=== PATIENT | female | born 1925 | race Caucasian/White ===

== ENCOUNTER 2016-06-01 11:52 | Inpatient (IN) | payer OTHER ==
[~2016-06-01] VITALS: Ht 154.9 cm; Wt 54.0 kg
--- NOTE | ~2016-06-01 | HC ---
[facility] [place] [address] CONSULTATION Name: ISABEL HUI Room #: 453-P [facility] IN M.R.#: [id number] Admission: 06/01/16 Attend Phys: Yohana Prater Discharge: 06/03/16 Date of : [birth year] Report #: [id number] THIS REPORT FOR: //name// CC: Jimmy Prater HISTORY OF PRESENT ILLNESS: The patient is an 89-year-old white female admitted with increased confusion, left-sided weakness. Left arm weakness and significantly gait decrease with decline functional mobility. MRI revealed an acute right posterior parietal stroke, which is new. 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 Neurology is seen her and she is on aspirin and Plavix. We are seeing her in rehabilitation medicine consultation with her significant functional decline from premorbid status. PATIENT'S PAST MEDICAL HISTORY: Includes a prior hemorrhagic stroke. She has a history of atrial fibrillation, but has been off Coumadin with the prior hemorrhagic stroke. There also is a note of some dementia, undiagnosed. PAST SURGICAL HISTORY: Includes a cholecystectomy in 1979. HABITS: Former smoker, quit greater than a year ago. She has a history of ETOH, use only on special occasions. ALLERGIES: CODEINE RESULTS IN SOME VOMITING. SOCIAL HISTORY: Lives with her son, ranch style house few steps in. Premorbid walker ambulator. She was able to use the walker, use the bathroom on her own premorbidly up until the time of this new stroke. REVIEW OF SYSTEMS: Did not offer any current complaints of chest pain, shortness of breath or abdominal discomfort examination. No focal extremity pain complaints. No HEENT complaints. PHYSICAL EXAMINATION: GENERAL: An 89-year-old small statured, thin, white female in no obvious distress. VITAL SIGNS: Last recorded temperature 97.8, pulse 63, respirations 16, blood pressure 110/51. NEUROLOGIC: She is alert, pleasant, somewhat impulsive, does have some slurring of her speech. Appears to have a depressed right nasolabial fold. Facies otherwise appeared reasonably symmetric. Functional range of motion of the right upper and right lower extremity without obvious focal weakness. Left upper extremity strength is probably a grade 3+ to 4-/5. Left lower extremity is probably a grade 3+ to 4-/5. DTRs are trace. She is needing assistance with basic functional mobility skills. ASSESSMENT: An 89-year-old white female with the following problem list: [address] [address] CONSULTATION Name: KORINAISABEL KENRICK Room #: 453-P [facility] IN .R.#: [id number] Admission: 06/01/16 Attend Phys: Yohana Prater Discharge: 06/03/16 Date of : [birth year] Report #: [id number] 1. Acute right posterior parietal stroke. 2. Left-sided weakness with decreased functional mobility, gait and ADLs. 3. Dysarthria. 4. History of atrial fibrillation, off Coumadin secondary to prior hemorrhagic stroke. 5. History of dementia, undiagnosed. Nevertheless, living in the community with her son. PLAN: Therapy evaluations are underway. We will see how she does in rehabilitation therapies and consider a short acute inpatient rehabilitation stay pending her progress. We will be glad to follow along with you. <ELECTRONICALLY SIGNED> By: Jimmy Piper MD 06/15/16 1518 1158 1350 Jimmy Piper MD /nt
--- NOTE | ~2016-06-01 | 2DMMODE ---
[facility] [place] [address] 2 D/M-MODE ECHOCARDIOGRAM Name: KORINAISABEL CHOUDHARY Room #: 453-P ADM IN M.R.#: [id number] Admission: 06/01/16 Attend Phys: Yohana Cary Discharge: Date of : [birth year] Date of Service: 06/02/16 0006 Report #: [id number] THIS REPORT FOR: //name// APPROVED REPORT Study performed: 06/01/2016 15:07:38 EXAM: Comprehensive 2D, Doppler, and color-flow Echocardiogram Patient Location: ER Room #: 2 Blood Pressure: 96/54 mmHg HR: 75 bpm Rhythm: Atrial Fibrillation Other Information Study Quality: Adequate Indications CVA/TIA Atrial Fibrillation 2D Dimensions RVDd: 24.48 mm LVEF(%): 61.44 (>50%) IVSd: 9.81 (7-11mm) LVOT Diam: 18.35 (18-24mm) LVDd: 33.53 mm PWd: 10.32 (7-11mm) Ascending Aorta: 27.86 mm LVDs: 22.78 (25-40mm) IVC: 20.00 mm Aortic Root: 23.75 mm Todd's LVEF: 61.44 % Volumes Left Atrial Volume (Systole) Single Plane 4CH: 63.98 mL Single Plane 2CH: 75.45 mL LA ESV Index: 49.00 mL/m2 Aortic Valve AoV Peak Ad.: 3.73 m/s AO Peak Gr.: 55.76 mmHg LV Max P.53 mmHg AO Mean Gr.: 33.74 mmHg LV Mean P.50 mmHg LV Max: 0.79 m/s AO V2 VTI: 852.75 mm LV Mean: 0.57 m/s TERELL (VTI): 0.53 cm2 LV V1 VTI: 171.76 mm SV (LVOT): 45.40 mL [facility] [place] [address] 2 D/M-MODE ECHOCARDIOGRAM Name: ISABEL HUI Room #: 453-P [facility] IN M.R.#: [id number] Admission: 06/01/16 Attend Phys: Yohana Cary Discharge: Date of : [birth year] Date of Service: 06/02/16 0006 Report #: [id number] Mitral Valve MV Peak Gr.: 14.69 mmHg MV Mean Gr.: 4.68 mmHg MV Decel. Time: 222.25 ms MV E Max Ad.: 1.56 m/s MV Max Ad.: 1.91 m/s MV Mean Ad.: 0.93 m/s MV VTI: 446.60 mm MVA VTI: 101.66 mm2 MV PHT: 80.16 ms Pulmonary Valve PV Peak Ad.: 0.93 m/s PV Peak Gr.: 3.44 mmHg Tricuspid Valve TR Peak Ad.: 2.79 m/s RAP Estimate: 10.00 mmHg TR Peak Gr.: 31.18 mmHg Left Ventricle The left ventricle is normal size. There is normal left ventricular wall thickness. Left ventricular systolic function is hyperdynamic. LVEF is 65-70%. Diastolic function cannot be accurately assessed. Right Ventricle The right ventricle is normal size. The right ventricular systolic function is normal. Atria Left atrium is dilated. Right atrium is dilated. Aortic Valve Aortic valve is calcified. Trace aortic regurgitation. Moderate to severe aortic stenosis. Mitral Valve Mitral valve leaflets have restricted excursion. Severe mitral annular calcification. Mild mitral regurgitation. Mild to moderate mitral stenosis. Tricuspid Valve The tricuspid valve is normal in structure. There is mild to moderate tricuspid regurgitation. The right atrial pressure is estimated at 10 mmHg. There is mild pulmonary hypertension. The estimated PAP was [address] [place] [address] 2 D/M-MODE ECHOCARDIOGRAM Name: ISABEL HUI Room #: 453-P [facility] IN [facility]#: [id number] Admission: 06/01/16 Attend Phys: Yohana Cary Discharge: Date of : [birth year] Date of Service: 06/02/16 0006 Report #: [id number] Pulmonic Valve The pulmonary valve is normal in structure. There is no pulmonic valvular regurgitation. Great Vessels The aortic root is normal in size. IVC is dilated and collapses >50% with inspiration. Pericardium There is no pericardial effusion. <Conclusion> The left ventricle is normal size. LVEF is 65-70%. Left atrium is dilated. Right atrium is dilated. Aortic valve is calcified although not well visualized Trace aortic regurgitation. Moderate to severe aortic stenosis. Mitral valve leaflets have restricted excursion. Severe mitral annular calcification. Mild mitral regurgitation. Mild to moderate mitral stenosis. The tricuspid valve is normal in structure. There is mild to moderate tricuspid regurgitation. The right atrial pressure is estimated at 10 mmHg. There is mild pulmonary hypertension. The estimated PAP was 41 mmHg. <ELECTRONICALLY SIGNED> By: Marcello Platt MD 06/02/165 Marcello Platt MD /INF
--- NOTE | ~2016-06-01 | EKG ---
[address] [place] [address] ELECTROCARDIOGRAM REPORT Name: ISABEL HUI KENRICK Room #: 453-P ADM IN M.R.#: [id number] Admission: 06/01/16 Attend Phys: Yohana Prater Discharge: Date of : [birth year] Report #: [id number] THIS REPORT FOR: //name// [facility] ED Test Date: 2016-06-01 Test Time: 13:04:18 Pat Name: ISABEL HUI Department: Room: [facility] Gender: F Help Desk Manager: jyotsna severino : 1925 Requested By: Alexis Hassan Order Number: [id number] MD: Edson Sears Measurements Intervals [place] Rate: 67 P: ME: QRS: 61 QRSD: 93 T: 164 QT: 420 QTc: 444 Interpretive Statements Atrial fibrillation LVH with secondary repolarization abnormality Anterior Q waves, possibly due to LVH Compared to ECG 12/28/2010 16:31:22 nonspecific change in the ST-T wave segments Electronically Signed On 06-02-2016 9:18:54 CDT by Edson Sears [email or web address] <ELECTRONICALLY SIGNED> By: Edson Sears MD, [facility] 06/02/16 0918 1304 1304 Edson Sears MD, [facility] /EPI
[~2016-06-01 11:52] MED LIST: ASPIRIN81 M2 PO; JANTOVEN6 MG PO; LIDODERM 5%1 PATCH TOP; MOBIC7.5 MG PO; MULTIVITAMINS1 EAC7 PO; RESTORIL30 MG PO; TRAMADOL 50 MG50 MG PO
[2016-06-01 12:03] VITALS: BP 92/53
[2016-06-01 12:36] LABS: ANION GAP 6 mmol/L (7-16); BUN 10 mg/dL (7-18); CALCIUM 9.1 mg/dL (8.5-10.1); CHLORIDE 104 mmol/L (98-107); CO2 28 mmol/L (21-32); CREATININE 0.6 mg/dL (0.6-1.0); GLUCOSE 115 mg/dL (74-106); POTASSIUM 5.1 mmol/L (3.5-5.1)
[2016-06-01 12:39] LABS: SODIUM 138 mmol/L (136-145)
[2016-06-01 12:46] LABS: TROPONIN-I < 0.04 ng/mL (<0.04-0.07)
[2016-06-01 12:47] LABS: INR 1.3; PROTIME 13.1 Seconds (9.3-11.4)
[2016-06-01 13:08] LABS: BASOPHILS 0.2 % (0.0-2.0); EOSINOPHILS 1.3 % (0.0-3.0); HEMATOCRIT 39.9 % (37.0-47.0); HEMOGLOBIN 13.3 gm/dL (12.0-15.0); LYMPHOCYTES 10.9 % (24.0-44.0); MCH 30.8 pg (26.0-34.0); MCHC 33.3 g/dL (28.0-37.0); MCV 92.6 fL (80.0-100.0); MONOCYTES 8.8 % (1.0-8.0); PLATELET COUNT 153 thou/uL (150-400); POLYS 78.8 % (36.0-66.0); RBC 4.32 mil/uL (4.20-5.00); RDW 14.4 % (10.5-14.5); WBC 6.3 thou/uL (4.0-11.0)
[2016-06-01 13:10] LABS: MANUAL DIFF NO
[2016-06-01 14:07] LABS: TC:HDL 2.6 Ratio (Not establshd)
[2016-06-01 14:11] LABS: URINE BILIRUBIN NEGATIVE (Negative); URINE BLOOD NEGATIVE (Negative); URINE COLOR YELLOW; URINE GLUCOSE-RANDOM* NEGATIVE (Negative); URINE KETONES NEGATIVE (Negative); URINE NITRITE NEGATIVE (Negative); URINE PROTEIN (DIPSTICK) NEGATIVE (Negative)
[2016-06-01 16:40] VITALS: BP 136/70
[2016-06-01 19:46] VITALS: BP 103/84
[2016-06-02 00:15] VITALS: BP 120/52
[2016-06-02 05:29] VITALS: BP 124/60
[2016-06-02 07:46] VITALS: BP 110/51
[2016-06-02 11:53] LABS: FOLIC ACID 15.3 ng/mL (8.6-58.9)
[2016-06-02 12:31] VITALS: BP 134/58
[2016-06-02 16:06] VITALS: BP 125/57
[2016-06-02 19:26] VITALS: BP 137/83
[2016-06-03 03:10] LABS: GLYCOHEMOGLOBIN (HGB A1C) 5.8 % (4.8-5.6)
[2016-06-03 03:35] VITALS: BP 139/77
[2016-06-03 08:25] VITALS: BP 139/89
[2016-06-03 12:45] VITALS: BP 105/54
[2016-06-03] MEDS ORDERED: LOPRESSOR25 PO (16:33)
[2016-06-03] MEDS ORDERED: ACETAMINOPHEN325 M1 PO (16:33)
[2016-06-03] MEDS ORDERED: CLOPIDOGREL75 MG PO (16:33)
[2016-06-03] MEDS ORDERED: ATORVASTATIN CA20 MG PO (16:33)
[2016-06-03] MEDS ORDERED: MIRALAX17 GM PO (16:33)
[2016-06-03 16:36] VITALS: BP 124/68
== END 2016-06-03 17:30 | DRG 66 ==
LOC: ER 11:52 → EROBS 13:45 → 4W 13:45
PROVIDERS: Emergency Medicine; Hospitalist; Psychiatry & Neurology Neurology
DX: I63.9 Cerebral infarction, unspecified (principal); I48.91 Unspecified atrial fibrillation; R26.9 Unspecified abnormalities of gait and mobility; R47.1 Dysarthria and anarthria; F03.90 Unspecified dementia, unspecified severity, without behavioral disturbance, psychotic disturbance, mood disturbance, and anxiety; E78.5 Hyperlipidemia, unspecified; I10 Essential (primary) hypertension; Z88.6 Allergy status to analgesic agent; Z90.49 Acquired absence of other specified parts of digestive tract; Z87.891 Personal history of nicotine dependence
CPT/HCPCS: 10045

== ENCOUNTER 2017-02-09 12:39 | Inpatient (IN) | payer OTHER ==
[~2017-02-09] VITALS: Ht 152.4 cm; Wt 56.7 kg
--- NOTE | ~2017-02-09 | EKG ---
[address] [address] ELECTROCARDIOGRAM REPORT Name: LOIDAISABEL MITCHELL KENRICK Room #: 443- ADM IN M.R.#: [id number] Admission: 02/09/17 Attend Phys: Mark Pappas MD Discharge: Date of : [birth year] Report #: [id number] THIS REPORT FOR: //name// [facility] Test Date: 2017-02-10 Test Time: 12:13:42 Pat Name: ISABEL HUI Department: Room: 443 Gender: F Valve Mechanic: Dmitri GUERRA : 1925 Requested By: Mark Pappas Order Number: [id number] MD: Melvin Conley Measurements Intervals [place] Rate: 80 P: [place]: QRS: 78 QRSD: 97 T: 3 QT: 378 QTc: 436 Interpretive Statements Atrial fibrillation Ventricular premature complex LVH with secondary repolarization abnormality Compared to ECG 06/01/2016 13:04:18 Ventricular premature complex(es) now present Q waves no longer present Electronically Signed On 02-11-2017 8:23:08 CONCRETE POURER by Melvin Conley [email or web address] <ELECTRONICALLY SIGNED> By: Melvin Conley MD 02/11/17 0823 1213 1213 Melvin Conley MD /EPI
--- NOTE | ~2017-02-09 | 2DMMODE ---
[facility] [address] [place] [address] 2 D/M-MODE ECHOCARDIOGRAM Name: KORINAISABEL CHOUDHARY Room #: 443-P ADM IN M.R.#: [id number] Admission: 02/09/17 Attend Phys: Mark Pappas, Discharge: Date of : [birth year] Date of Service: 02/10/17 1100 Report #: [id number] THIS REPORT FOR: //name// APPROVED REPORT Study performed: 02/10/2017 07:11:37 EXAM: Comprehensive 2D, Doppler, and color-flow Echocardiogram Patient Location: Bedside Room #: 443 Status: routine BSA: 1.56 HR: 90 bpm BP: 133/77 mmHg Rhythm: Atrial Fibrillation Other Information Study Quality: Adequate Indications Short of breath. Hx: Afib, HTN, aortic stenosis 2D Dimensions RVDd: 27.23 mm LVEF(%): 65.42 (>50%) IVSd: 11.75 (7-11mm) LVOT Diam: 19.43 (18-24mm) LVDd: 37.89 mm PWd: 11.01 (7-11mm) Ascending Ao: 30.07 (22-36mm) LVDs: 24.52 (25-40mm) Aortic Root: 26.88 mm Todd's LVEF: 65.42 % Volumes Left Atrial Volume (Systole) Single Plane 4CH: 64.49 mL Single Plane 2CH: 69.26 mL LA ESV Index: 45.00 mL/m2 Aortic Valve AoV Peak Ad.: 4.70 m/s AO Peak Gr.: 88.21 mmHg LVOT Max P.35 mmHg AO Mean Gr.: 49.96 mmHg AO V2 Mean: 3.41 m/s LVOT Max V: 0.92 m/s AO V2 VTI: 92.17 cm TERELL Vmax: 0.58 cm2 Mitral Valve [facility] [place] [address] 2 D/M-MODE ECHOCARDIOGRAM Name: KORINAISABEL KENRICK Room #: 443-P [facility] IN .R.#: [id number] Admission: 02/09/17 Attend Phys: Mark Pappas, Discharge: Date of : [birth year] Date of Service: 02/10/17 1100 Report #: [id number] MV Decel. Time: 269.35 ms MV PHT: 79.12 ms MVA (PHT): 2.78 cm2 Pulmonary Valve PV Peak Da.: 0.88 m/s PV Peak Gr.: 3.09 mmHg Tricuspid Valve TR Peak Ad.: 2.83 m/s RAP Estimate: 10.00 mmHg TR Peak Gr.: 32.14 mmHg PA Pressure: 42.00 mmHg Left Ventricle The left ventricle is normal size. There is normal LV segmental wall motion. Mild concentric left ventricular hypertrophy. Left ventricular systolic function is hyperdynamic. LVEF is 65-70%. This study is not technically sufficient to allow evaluation of the LV diastolic function due to atrial fibrillation. Right Ventricle The right ventricle is normal size. The right ventricular systolic function is normal. Atria Left atrium is severely dilated. Right atrium is moderately dilated. Aortic Valve Aortic valve is heavily calcified. Trace aortic regurgitation. There is severe valvular aortic stenosis. Calculated aortic valve area is 0.6 cm2 with an average maximum pressure gradient of 77 mmHg and average mean pressure gradient of 46 mmHg. Mitral Valve Mitral valve leaflets have restricted excursion. Severe mitral annular calcification. Mild mitral regurgitation. Mild to moderate mitral stenosis. Average mean pressure gradient of 6mmHg. Tricuspid Valve The tricuspid valve is normal in structure. Mild to moderate tricuspid regurgitation. Estimated PAP is 40-45mmHg. Pulmonic Valve Pulmonic valve is not well visualized. [place] [address] 2 D/M-MODE ECHOCARDIOGRAM Name: ISABEL HUI Room #: 443-P [facility] IN ..#: [id number] Admission: 02/09/17 Attend Phys: Mark Pappas, Discharge: Date of : [birth year]/16/[birth year] Date of Service: 02/10/17 1100 Report #: [id number] Great Vessels The aortic root is normal in size. The ascending aorta is normal in size. IVC is normal in size and collapses <50% with inspiration. Pericardium Small anterior pericardial effusion noted. Right pleural effusion noted. <Conclusion> The left ventricle is normal size. Mild concentric left ventricular hypertrophy. LVEF is 65-70%. Left atrium is severely dilated. Right atrium is moderately dilated. Aortic valve is heavily calcified. Trace aortic regurgitation. There is severe valvular aortic stenosis. Calculated aortic valve area is 0.6 cm2 with an average maximum pressure gradient of 77 mmHg and average mean pressure gradient of 46 mmHg. Mitral valve leaflets have restricted excursion. Severe mitral annular calcification. Mild to moderate tricuspid regurgitation. Estimated PAP is 40-45mmHg. Small anterior pericardial effusion noted. <ELECTRONICALLY SIGNED> By: Mickey Galvan MD, FACC 02/10/17 1100 1100 1100 Mickey Galvan MD, FACC /INF
[~2017-02-09 12:39] MED LIST changes: +ACETAMINOPHEN325 M1 PO; +ATORVASTATIN CA20 MG PO; +CLOPIDOGREL75 MG PO; +LOPRESSOR25 PO; +MIRALAX17 GM PO
[2017-02-09 12:40] VITALS: BP 142/64
[2017-02-09 12:58] LABS: ABSOLUTE NEUTROPHILS 4.6 thou/uL (1.4-8.2); BASOPHILS 0.8 % (0.0-2.0); EOSINOPHILS 2.4 % (0.0-3.0); HEMOGLOBIN 12.2 gm/dL (12.0-15.0); LYMPHOCYTES 16.8 % (24.0-44.0); MCH 29.6 pg (26.0-34.0); MCV 89.8 fL (80.0-100.0); MONOCYTES 9.2 % (1.0-8.0); PLATELET COUNT 121 thou/uL (150-400); POLYS 70.8 % (36.0-66.0); RBC 4.12 mil/uL (4.20-5.00); RDW 15.2 % (10.5-14.5); WBC 6.5 thou/uL (4.0-11.0)
[2017-02-09 13:06] LABS: CREATININE 0.8 mg/dL (0.6-1.0); POTASSIUM 3.9 mmol/L (3.5-5.1)
[2017-02-09 13:21] LABS: BE(vivo) 4.1 mmol/L (-2 to +3); PCO2 50.7 mmHg (35.0-45.0); PO2 63.3 mmHg (80.0-100.0); sO2 91.7 % (92.0-98.0)
[2017-02-09] MEDS ORDERED: ASPIRIN325 PO (13:27)
[2017-02-09] MEDS ORDERED: CARVEDILOL3.125 MG PO (13:30)
[2017-02-09] MEDS ORDERED: LASIX 40 MG TAB40 M2 PO (13:31)
[2017-02-09] MEDS ORDERED: SEROQUEL 25 MG25 M1 PO (13:31)
[2017-02-09] MEDS ORDERED: POTASSIUM20 PO (13:32)
[2017-02-09 13:46] VITALS: BP 120/70
[2017-02-09 14:08] VITALS: BP 120/70
[2017-02-09 14:30] VITALS: BP 137/86
[2017-02-09] MEDS ORDERED: DUONEB 2.5-0.5 M3 ML INH (16:15)
[2017-02-09] MEDS ORDERED: XANAX 0.25 MG0.25 MG PO (16:17)
[2017-02-10 00:35] VITALS: BP 133/77
[2017-02-10 06:21] LABS: HEMATOCRIT 36.6 % (37.0-47.0); HEMOGLOBIN 11.9 gm/dL (12.0-15.0); MCH 29.6 pg (26.0-34.0); MCHC 32.4 g/dL (28.0-37.0); MCV 91.2 fL (80.0-100.0); RBC 4.01 mil/uL (4.20-5.00); RDW 15.3 % (10.5-14.5); WBC 5.2 thou/uL (4.0-11.0)
[2017-02-10 06:31] LABS: CALCIUM 8.7 mg/dL (8.5-10.1); CREATININE 0.7 mg/dL (0.6-1.0); MAGNESIUM 1.9 mg/dL (1.8-2.4); POTASSIUM 3.4 mmol/L (3.5-5.1)
[2017-02-10 07:49] VITALS: BP 114/64
[2017-02-10 16:06] VITALS: BP 113/70
[2017-02-10 20:00] VITALS: BP 109/66
[2017-02-11 04:30] VITALS: BP 116/56
[2017-02-11 07:35] VITALS: BP 121/75
[2017-02-11 08:39] LABS: HEMATOCRIT 37.7 % (37.0-47.0); HEMOGLOBIN 12.6 gm/dL (12.0-15.0); MCHC 33.3 g/dL (28.0-37.0); RBC 4.19 mil/uL (4.20-5.00); RDW 15.7 % (10.5-14.5); WBC 5.8 thou/uL (4.0-11.0)
[2017-02-11 08:45] LABS: CALCIUM 9.3 mg/dL (8.5-10.1); CREATININE 0.9 mg/dL (0.6-1.0); MAGNESIUM 1.8 mg/dL (1.8-2.4); POTASSIUM 3.6 mmol/L (3.5-5.1)
[2017-02-11 16:35] VITALS: BP 114/74
[2017-02-11 19:59] VITALS: BP 118/57
[2017-02-11 23:17] VITALS: BP 106/50
[2017-02-12 03:16] VITALS: BP 130/74
[2017-02-12 09:25] VITALS: BP 134/82
[2017-02-12 16:22] VITALS: BP 127/79
[2017-02-12 20:54] VITALS: BP 122/64
[2017-02-13 03:50] VITALS: BP 125/63
[2017-02-13 08:00] VITALS: BP 111/66
[2017-02-13 12:31] LABS: HEMATOCRIT 38.4 % (37.0-47.0); HEMOGLOBIN 12.9 gm/dL (12.0-15.0); MCHC 33.6 g/dL (28.0-37.0); MCV 89.1 fL (80.0-100.0); RBC 4.31 mil/uL (4.20-5.00); RDW 14.9 % (10.5-14.5); WBC 7.4 thou/uL (4.0-11.0)
[2017-02-13 12:43] LABS: CALCIUM 9.7 mg/dL (8.5-10.1); CREATININE 0.7 mg/dL (0.6-1.0); MAGNESIUM 2.1 mg/dL (1.8-2.4)
[2017-02-13 16:00] VITALS: BP 121/81
[2017-02-13 19:47] VITALS: BP 119/80
[2017-02-14 00:35] VITALS: BP 111/69
[2017-02-14 04:37] VITALS: BP 139/85
[2017-02-14 09:00] VITALS: BP 113/58
[2017-02-14 16:20] VITALS: BP 124/77
[2017-02-14 20:30] VITALS: BP 123/69
[2017-02-15 03:48] VITALS: BP 119/55
[2017-02-15 05:32] LABS: ABSOLUTE NEUTROPHILS 5.9 thou/uL (1.4-8.2); BASOPHILS 0.3 % (0.0-2.0); HEMATOCRIT 39.3 % (37.0-47.0); HEMOGLOBIN 13.1 gm/dL (12.0-15.0); LYMPHOCYTES 19.9 % (24.0-44.0); MCH 29.8 pg (26.0-34.0); MCHC 33.3 g/dL (28.0-37.0); MCV 89.6 fL (80.0-100.0); MONOCYTES 6.8 % (1.0-8.0); PLATELET COUNT 179 thou/uL (150-400); RBC 4.38 mil/uL (4.20-5.00); RDW 15.1 % (10.5-14.5); WBC 8.6 thou/uL (4.0-11.0)
[2017-02-15 05:52] LABS: ALBUMIN 2.9 g/dL (3.4-5.0); CREATININE 0.8 mg/dL (0.6-1.0); POTASSIUM 3.6 mmol/L (3.5-5.1); TOTAL BILIRUBIN 0.6 mg/dL (<0.1-1.0); TOTAL PROTEIN 7.1 g/dL (6.4-8.2)
[2017-02-15 07:40] VITALS: BP 108/73
[2017-02-15 15:02] VITALS: BP 126/71
[2017-02-15 20:40] VITALS: BP 133/70
[2017-02-16 04:46] VITALS: BP 109/71
[2017-02-16 07:30] VITALS: BP 131/82
[2017-02-16] MEDS ORDERED: LEVAQUIN 500 M500 M2 PO (12:12)
[2017-02-16 15:35] VITALS: BP 115/64
[2017-02-16 22:30] VITALS: BP 135/87
[2017-02-17 04:47] VITALS: BP 107/64
[2017-02-17 08:37] VITALS: BP 127/52
== END 2017-02-17 11:26 | DRG 177 ==
LOC: ER 12:39 → 4S 13:25
PROVIDERS: Emergency Medicine; Internal Medicine; Nurse Practitioner Family
DX: J15.6 Pneumonia due to other Gram-negative bacteria (principal); J96.01 Acute respiratory failure with hypoxia; I10 Essential (primary) hypertension; F03.90 Unspecified dementia, unspecified severity, without behavioral disturbance, psychotic disturbance, mood disturbance, and anxiety; I25.10 Atherosclerotic heart disease of native coronary artery without angina pectoris; I35.0 Nonrheumatic aortic (valve) stenosis; I48.2 Chronic atrial fibrillation; E11.9 Type 2 diabetes mellitus without complications; Z66 Do not resuscitate; Z28.21 Immunization not carried out because of patient refusal; Z90.49 Acquired absence of other specified parts of digestive tract; Z88.6 Allergy status to analgesic agent; Z87.891 Personal history of nicotine dependence; Z79.899 Other long term (current) drug therapy; Z79.82 Long term (current) use of aspirin
CPT/HCPCS: 10100